=== PATIENT | male | born 1975 ===

== ENCOUNTER 2017-06-25 23:25 | Emergency (ER) | payer OTHER ==
[2017-06-25 23:35] VITALS: BP 142/88; PULSE 69; RESP 16; TEMP 98; O2SAT 99
--- NOTE | 2017-06-25 23:42 | ED PDOC ---
HPI: Wound Care - HPI Time Seen by Provider: 06/25/17 23:36 Chief Complaint (Nursing): Abnormal Skin Integrity Chief Complaint (Provider): hand laceration History Per: Patient, Other (Friend at bedside is translating for patient in Filipino) Additional Complaint(s): 41-year-old right-hand dominant male presents to emergency department with laceration to right hand sustained at work when a piece of drywall fell on top of his hand. Patient applied pressure dressing and came to ED. He is not sure of his last tetanus. Patient able to move all digits without limitations and denies any associated numbness or tingling to the affected area. Past Medical History Reviewed: Historical Data, Nursing Documentation, Vital Signs Vital Signs: Last Vital Signs Temp 98.0 F 06/25/17 23:32 Pulse 69 06/25/17 23:32 Resp 16 06/25/17 23:32 BP 142/88 06/25/17 23:32 Pulse Ox 99 06/25/17 23:32 - Medical History PMH: No Chronic Diseases - Surgical History Surgical History: No Surg Hx - Family History Family History: States: No Known Family Hx - Living Arrangements Living Arrangements: With Family - Social History Current smoker - smoking cessation education provided: No Alcohol: Social Drugs: Denies - Immunization History Hx Tetanus Toxoid Vaccination: No (not sure of last booster) - Allergies Allergies/Adverse Reactions: Allergies Allergy/AdvReac Type Severity Reaction Status Date / Time No Known Allergies Allergy Verified 06/25/17 23:32 Review of Systems ROS Statement: Except As Marked, All Systems Reviewed And Found Negative Musculoskeletal: Positive for: Other (right hand laceration) Physical Exam - Reviewed Nursing Documentation Reviewed: Yes Vital Signs Reviewed: Yes - Physical Exam Appears: Positive for: Well, Non-toxic, No Acute Distress Skin: Negative for: Rash Eye Exam: Positive for: Normal appearance Extremity: Positive for: Other (There is a 3 cm superficial laceration noted to dorsum of right hand overlying the third and fourth metacarpals, no active bleeding, full range of motion of all digits noted, no gross foreign body, normal distal sensation, full range of motion right wrist) Neurologic/Psych: Positive for: Alert, Oriented - ECG O2 Sat by Pulse Oximetry: 99 Pulse Ox Interpretation: Normal - Other Rad Right hand x-ray X-Ray: Interpreted by Me, Viewed By Me Procedure: Wound Repair - Time Performed Time Performed: 00:25 - Time Out Time Out: Side verified, Site verified, Patient ID confirmed, Sterile procedures obs. - Procedure Procedure: Wound Repair: Right hand laceration repair - Consent Obtained Consent obtained: Verbal - Performed by Performed by: Mid-level Provider - Indications Indication(s):: Laceration - Location Location:: Right, Hand Dimensions Length cm: 3 Depth:: Epidermis - Anesthetic Technique Anesthetic Technique: Local Local/Regional Anesthetic:: Lidocaine 1% w/epi - Debris Debris:: None - Irrigated Irrigated with ml of normal saline: 20 - Complexity Complexity:: Simple (one layer) - Wound repair method Sutures:: # (9), Size (5-0), Type (nylon), Technique (simple interrupted) - Muscle repiar layer closed with Muscle repair layer closed with:: Abx ointment applied, Dressing applied, Tetanus ordered - Complications Complications: none - Patient tolerated procedure Patient Tolerated Procedure:: Well Medical Decision Making Medical Decision Makin-year-old male with right hand laceration Plan: X-ray right hand Tetanus booster Laceration repair Disposition - Clinical Impression Clinical Impression: Hand laceration, Requires a booster tetanus - Patient ED Disposition Is Patient to be Admitted: No Counseled Patient/Family Regarding: Studies Performed, Diagnosis, Need For Followup - Disposition Referrals: [facility] [Outside] Disposition: Routine/Home Disposition Time: 00:26 Condition: STABLE Additional Instructions: KEEP WOUND CLEAN AND DRY. OVER THE COUNTER MOTRIN FOR PAIN NEEDED. SUTURE REMOVAL 10-14 DAYS. Instructions: Diphtheria/Acellular Pertussis/Tetanus Booster Vaccine (Tdap) ( Injection), Care For Your Stitches (ED), Laceration (ED) Forms: [employer] (Filipino) Print Language: FAROESE
[2017-06-26] MEDS ORDERED: Lidocaine 1% w Epi 1:100,000 Inj INJ STA (00:10)
[2017-06-26] MEDS ORDERED: Lidocaine 2% w Epi 1:100,000 Inj IJ STA (00:27)
[2017-06-26] MEDS ORDERED: Lidocaine 2% w Epi 1:100,000 Inj IJ ONE (00:43)
--- NOTE | 2017-06-26 10:01 | RAD ---
PROCEDURE: Right Hand Radiographs. HISTORY: trauma COMPARISON: None available. FINDINGS: BONES: No acute displaced fracture. JOINTS: No dislocation. SOFT TISSUES: No evidence of radiopaque foreign body. OTHER FINDINGS: None. IMPRESSION: No acute displaced fracture, dislocation, or significant joint effusion identified. If symptoms persist, or if there is continued clinical concern, x-ray follow-up in 7-10 days should be considered.
== END 2017-06-26 01:38 | disposition home or self-care (01) ==
LOC: H.ER 23:25
DX: S61.411A Laceration without foreign body of right hand, initial encounter (principal); W26.8XXA Contact with other sharp object(s), not elsewhere classified, initial encounter; Y99.0 Civilian activity done for income or pay